=== PATIENT | male | born 1980 | race African-American/Black ===

== ENCOUNTER 2018-02-05 18:13 | Emergency (ER) | payer BC, SELFPAY ==
[2018-02-05 18:17] VITALS: BP 110/64; PULSE 88; RESP 18; TEMP 36.6; O2SAT 98; BMI 25.7
--- NOTE | 2018-02-05 19:41 | ED_ITS ---
HPI - Extremity Injury (Upper) General Chief Complaint: Extremity Injury, Upper Stated Complaint: RT SHOULDER AND ARM PAIN Time Seen by Provider: 02/05/18 19:24 Source: patient Mode of arrival: ambulatory Limitations: no limitations History of Present Illness HPI narrative: Patient is a 37-year-old male who presents with right shoulder pain. It has been ongoing for a number of months. He has pain in the joint down into his biceps he occasionally has some numbness and tingling in his fingers. 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 He has been taking on 600 ibuprofen once a day helps for couple of hours. No other symptoms. MD complaint: injury to: right and shoulder Onset (ago): month(s) Related Data Previous Rx's Medication Instructions Recorded meloxicam 15 mg PO DAILY PRN #20 tab 02/05/18 Review of Systems Review of Systems GENERAL: Denies chills,fever HEENT: Denies throat pain RESPIRATORY: Denies dyspnea, cough, wheezing CARDIOVASCULAR: Denies chest pain, palpitations GASTROINTESTINAL: Denies nausea, vomiting MUSCULOSKELETAL: See HPI SKIN: No rash, no laceration, no pruritus NEUROLOGIC: Denies weakness, dizziness, headache, numbness 8 point review of systems is negative except for those stated above and HPI [facility] Medical History Healthy adult (Acute) Social History Smoking Status: Never smoker Exam Initial Vital Signs Initial Vital Signs: Vital Signs Temperature 97.9 F 02/05/18 18:17 Pulse Rate 88 02/05/18 18:17 Respiratory Rate 18 02/05/18 18:17 Blood Pressure 110/64 02/05/18 18:17 Pulse Oximetry 98 02/05/18 18:17 GENERAL: Well-appearing, well-nourished and in no acute distress. CARDIOVASCULAR: peripheral pulses in tact, cap refill <2 sec RESPIRATORY: No respiratory distress, speaks in full sentences without difficulty EXTREMITIES: Normal range of motion, no clubbing or edema. Neurovascularly intact Negative Neer's test of full extension flexion internal external rotation. Tender at the biceps tendon. No erythema. Neurovascularly intact. Radian median and ulnar nerve on all within normal limits. NEUROLOGICAL: Cranial nerves II through XII grossly intact. Normal gait and speech. SKIN: Warm, dry, no petechiae, no rashes or lesions. Course Orders Ordered: Discontinued Medications Ketorolac Tromethamine (Toradol) 30 mg IM NOW ONE Stop: 02/05/18 19:39 Last Admin: 02/05/18 20:01 Dose: 30 mg Vital Signs - 8 hr 02/05/18 20:21 Pulse Rate 70 Respiratory Rate 16 Blood Pressure 121/73 Pulse Oximetry 100 Discharge Plan Departure Patient Disposition: Home Clinical Impression: Impingement syndrome of right shoulder Discharge Date/Time: 02/05/18 20:22 Interventions: ED Discharge Assessment Last Done: 02/05/18 20:21 Instructions: Shoulder Tendinopathy, Rotator Cuff Injury Activity Restrictions/Additional Instructions: *You have been diagnosed with impingement syndrome, shoulder tendinopathy *What to do: Rest, stretches, ice 20-30 minutes at a time *Continue to take medications as directed Meloxicam 7.5mg -15 mg once a day with food do not combine with other and says such as naproxen, ibuprofen, Motrin, Aleve, Advil etc *Follow up with your primary care provider in 2-3 days *Return to ER if you should have numbness, tingling, weakness or any new, worsening or concerning symptoms Alleviating Pain If you are experiencing pain in your shoulder, use these techniques to help alleviate your symptoms: ?Take an extended break (at least a few weeks) from painting: Continuing to paint will only do further damage to your shoulder, and can lead to more serious conditions. ?Ice your shoulder daily: A bag of ice placed on your shoulder for 15 to 20 minutes can reduce inflammation. Remember to place a towel between your shoulder and the ice. ?Perform light stretches to reduce stiffness once pain has gone: You may experience some stiffness in your shoulder when the pain starts to go away. Light, daily stretching may reduce some of this stiffness and improve your muscle strength in those areas. Prevention You can prevent these problems from ever occurring. If you?re undertaking a large painting project in the near future, use these techniques to help you avoid shoulder injury. ?Perform stretches before painting: Loosen your muscles before getting started, to avoid issues associated with tense muscles. ?Use ladders and extension poles to help you reach high places: The less reaching you have to do, the better. ?Take turns painting near the ceiling: [place] with a partner or two, and rotate between jobs. While one person paints near the ceiling for 15 minutes, one person may paint near the floor. Then, switch off. ?Take breaks when painting: Stop frequently during the day to give your arm and shoulder a rest. Prescriptions: New meloxicam 7.5 mg tablet 15 mg PO DAILY PRN (Reason: pain (scale score 4-6)) Qty: 20 RF: 0 Referrals: [facility] [Provider Group] [facility] [Provider Group] [facility] [Provider Group] [facility] [Provider Group] [facility] [Provider Group]
[2018-02-05] MEDS: KETOROLAC 60 MG/2 ML VIAL 30 MG IM (20:01)
[2018-02-05 20:21] VITALS: BP 121/73; PULSE 70; RESP 16; O2SAT 100
== END 2018-02-05 20:22 | disposition home or self-care (01) ==
PROVIDERS: Emergency Provider Emergency Medicine
DX: M75.41 Impingement syndrome of right shoulder (principal)
CPT/HCPCS: 96372; 99282; 99283; J1885